=== PATIENT | male | born 1965 | race American Indian/Alaskan Native ===

== ENCOUNTER 2016-08-20 17:58 | Emergency (ER) | payer SELFPAY ==
[2016-08-20] MEDS ORDERED: VITAMIN B-1 100 MG, FOLVITE 1 MG, INFUVITE 10 ML in NACL 0.9% 1000 ML 1,000 ML IV ONE (19:40)
[2016-08-20 20:10] LABS: Hematocrit 44.2 % (35.5-45.6); Hemoglobin 15.1 gm/dl (11.8-15.2); Mean Corpuscular HGB Conc 34 % (32-34); Mean Corpuscular Hemoglobin 32 pg (28-32); Mean Corpuscular Volume 94 fl (84-94); Platelet Count 193 K/mm3 (140-440); Red Blood Count 4.72 M/mm3 (3.65-5.03); White Blood Count 12.4 K/mm3 (4.5-11.0)
--- NOTE | 2016-08-20 20:14 | Cat Scan Report ---
FINAL REPORT EXAM: CT HEAD/BRAIN WO CON HISTORY: headache TECHNIQUE: Standard unenhanced CT of the head at 5.0 millimeter axial increments PRIORS: None. FINDINGS: The ventricular system is normal in size and configuration. There is no evidence for parenchymal volume loss. There is no evidence for mass lesion, mass effect, midline shift, acute intracranial hemorrhage, or acute ischemia/ infarction. Visualized paranasal sinuses are clear. IMPRESSION: Negative CT of the head. No acute intracranial process noted.
[2016-08-20 20:29] LABS: Anion Gap 19 mmol/L; Blood Urea Nitrogen 12 mg/dL (9-20); Calcium 8.6 mg/dL (8.4-10.2); Carbon Dioxide 22 mmol/L (22-30); Chloride 99.6 mmol/L (98-107); Glucose 125 mg/dL (75-100); Magnesium 2.5 mg/dL (1.7-2.3); Potassium 3.8 mmol/L (3.6-5.0); Sodium 137 mmol/L (137-145)
--- NOTE | 2016-08-20 20:46 | Emergency Department Report ---
HPI - General Chief Complaint: Seizure Time Seen by Provider: 08/20/16 18:55 - HPI HPI: The patient is a 51-year-old male who presents for altered mental status. Per EMS staff and the patient is living facility reported observing the patient exhibited seizure-like activity approximately 1 hour prior to arrival. EMS states that the patient was confused and disoriented on their arrival to scene. The patient reports difficulty remembering and mild intermittent difficulty finding words, constant since seizure-like activity. He shares that he experienced a similar episode one week ago. The patient denies fever, headache, head injury, biting of the tongue, neck pain, neck stiffness, vision or hearing changes, smell or taste changes, paresthesias, facial drooping, slurred speech, or other focal neurological deficit. ED Past Medical Hx - Past Medical History Hx Hypertension: Yes Hx Psychiatric Treatment: Yes (Bi-Polar) Additional medical history: Degenerative disc disease. pre-diabetic. hypothyroidism. high cholesterol - Surgical History Additional Surgical History: partial laminectomy 1996, 1997. cervical fusion 2003. tonsilectomy 1969 - Social History Smoking Status: Current Every Day Smoker - Medications Home Medications: Home Medications Medication Instructions Recorded Confirmed Last Taken Type levETIRAcetam [Keppra TAB] 500 mg PO BID #30 tablet 08/20/16 Unknown Rx ED Review of Systems ROS: Stated complaint: POSS SZ Other details as noted in HPI Constitutional: denies: fever ENT: denies: throat or neck pain Respiratory: denies: cough, shortness of breath Cardiovascular: denies: chest pain Endocrine: denies unexplained weight loss or gain Gastrointestinal: denies: abdominal pain, nausea Genitourinary: denies: dysuria Musculoskeletal: denies: leg swelling Skin: denies: rash Neurological: reports confusion and speech delay denies: headache Hematological/Lymphatic: denies: easy bleeding or easy bruising Psych: denies sadness or hopelessness Physical Exam - Physical Exam Vital Signs: Vital Signs 08/20/16 18:42 Temperature 98.8 F Pulse Rate 95 H Respiratory 18 Rate Blood Pressure 126/96 O2 Sat by Pulse 96 Oximetry Physical Exam: General: well-nourished, well-developed, no acute distress Head: Normocephalic, mild superficial abrasion present to her right face, no lacerations Eyes: normal sclera, EOMI, PERRL, no nystagmus ENT: Mucous membranes are pale and dry Neck: No neck stiffness, no cervical adenopathy Respiratory: Breath sounds equal bilaterally, no wheezing, rales, or rhonchi Cardio: S1 and S2 present, no murmurs, rubs, gallops, capillary refill is delayed Abdomen: Normoactive bowel sounds, soft abdomen, no rigidity, no guarding or rebound tenderness Musc: No pitting edema Skin: No rash Neuro: Alert, oriented x2, no facial drooping, CN 2-12 intact, no slurred speech , intermittent mild delay in speech, no sensation or motor deficits in the arms or legs, 2+ symmetrical reflexes on DTR testing bilaterally, no correlation deficit with finger to nose testing, Romberg negative, patient able to ablate in the hallway without any abnormal gait whatsoever Psych: Normal affect ED Course Vital Signs 08/20/16 18:42 Temperature 98.8 F Pulse Rate 95 H Respiratory 18 Rate Blood Pressure 126/96 O2 Sat by Pulse 96 Oximetry ED Medical Decision Making - Lab Data Result diagrams: 08/20/16 19:48 - Medical Decision Making The patient was seen and examined by myself. The patient is placed on a monitor technician and continuous pulse ox. On initial evaluation, the patient was found to be in no distress. Evaluation orders were placed. The patient is given a banana bag infusion for treatment of dehydration. Lab results revealed mild leukocytosis of 12 and mildly elevated lactic acid 2.7, likely stress reaction and secondary to seizure-like activity. CAT scan of the head is negative for acute intracranial disease process. As the patient has experienced 2 episodes of suspected seizure-like activity recently, he will be started on antiseizure medication regimen. The patient is given 1 g of Keppra for treatment of suspected seizure-like activity, he will be given a prescription for Keppra. The patient was reevaluated and reported that his difficulty finding words was resolved. He is able to ambulate in the hallway and no longer has any disorientation or delay minute and speech. The patient is stable for discharge with outpatient follow-up. The patient is given follow-up and return instructions. The patient expressed understanding and agreed with the plan. The patient is discharged in stable condition. Critical care attestation.: If time is entered above; I have spent that time in minutes in the direct care of this critically ill patient, excluding procedure time. ED Disposition Clinical Impression: Dehydration, Seizure disorder, Lactic acid acidosis Disposition: DISCHARGED TO HOME OR SELFCARE Is pt being admited?: No Does the pt Need Aspirin: No Condition: Stable Instructions: Epilepsy (ED) Additional Instructions: Follow up with the referred neurologist Dr. Qiu, or another neurologist of your choosing. Prescriptions: levETIRAcetam [Keppra TAB] 500 mg PO BID #30 tablet Referrals: PRIMARY CAREMD [Primary Care Provider] - 3-5 Days HEATHER QIU MD [Staff Physician] - 3-5 Days Time of Disposition: 20:30
[2016-08-20 21:26] LABS: Bilirubin,Urine NEG (Negative); Blood,Urine NEG (Negative); Ketones,Urine TR mg/dL (Negative); Leukocyte Esterase,Urine NEG (Negative); Mucus,Urine FEW /HPF; Nitrite,Urine NEG (Negative); Protein,Urine <15 mg/dL mg/dL (Negative); Urobilinogen,Urine < 2.0 mg/dL (<2.0); WBC,Urine < 1.0 /HPF (0.0-6.0)
[2016-08-20] MEDS ORDERED: KEPPRA PO ONE (21:39)
[2016-08-20] MEDS ORDERED: ATIVAN IV PRN (22:58)
[2016-08-21 03:39] VITALS: BP 133/86
== END 2016-08-21 02:00 | disposition home or self-care (01) ==
LOC: ED 17:58
DX: G40.909 Epilepsy, unspecified, not intractable, without status epilepticus (principal); E87.2 Acidosis; E86.0 Dehydration; I10 Essential (primary) hypertension; E78.00 Pure hypercholesterolemia, unspecified; E03.9 Hypothyroidism, unspecified; F17.200 Nicotine dependence, unspecified, uncomplicated
CPT/HCPCS: 36415; 70450; 80048; 81001; 82140; 83735; 85027; 96365; 96366; 96375; 99285; G0480; J2060; J3411; J7030; 80320